=== PATIENT | female | born 1985 | race Caucasian/White ===

== ENCOUNTER 2023-02-19 11:10 | Emergency (ER) | payer OTHER ==
[~2023-02-19] VITALS: Ht 167.6 cm; Wt 181.4 kg
[~2023-02-19 11:10] MED LIST: ALBU90OI INH; BUSP5 PO; Norco 10-325 T1 EACH PO; QUET100 PO; SULTRIDS PO; TIZA4 PO
[2023-02-19 11:37] VITALS: BP 175/132
[2023-02-19] MEDS ORDERED: Neurontin 300300 MG PO (12:15)
== END 2023-02-19 12:25 | disposition home or self-care (01) ==
LOC: ER 11:10
DX: M54.50 Low back pain, unspecified (principal); G89.29 Other chronic pain; J45.909 Unspecified asthma, uncomplicated; F32.A Depression, unspecified; F41.9 Anxiety disorder, unspecified
CPT/HCPCS: 96372; 99283-25; A9270; J1885

== ENCOUNTER 2023-06-20 10:38 | Emergency (ER) | payer OTHER ==
[~2023-06-20] VITALS: Ht 172.7 cm; Wt 167.8 kg
[~2023-06-20 10:38] MED LIST changes: +Neurontin 300300 MG PO
[2023-06-20 11:33] VITALS: BP 140/89
[2023-06-20] MEDS ORDERED: Ketorolac Tromethamine 10 MG Tab PO ONE (11:40)
[2023-06-20] MEDS ORDERED: Acetaminophen 500 MG Tab PO ONE (11:40)
== END 2023-06-20 13:01 | disposition home or self-care (01) ==
LOC: ER 10:38
DX: S93.402A Sprain of unspecified ligament of left ankle, initial encounter (principal); W18.30XA Fall on same level, unspecified, initial encounter; I10 Essential (primary) hypertension
CPT/HCPCS: 73630; 99283-25; A9270